=== PATIENT | female | born 1955 | race Caucasian/White ===

== ENCOUNTER 2019-07-29 13:22 | Emergency (ER) | payer OTHER ==
[~2019-07-29] VITALS: Ht 154.9 cm; Wt 72.6 kg
[~2019-07-29 13:22] MED LIST: CIPRO500 MG PO; FLAGYL500MG PO; PROVENTIL2.5 MG/3 M
[2019-07-29] MEDS ORDERED: VASOTEC5 MG (13:43)
== END 2019-07-29 21:51 | disposition home or self-care (01) ==
LOC: ER 13:22
DX: K57.90 Diverticulosis of intestine, part unspecified, without perforation or abscess without bleeding (principal)